=== PATIENT | female | born 1970 | race Caucasian/White ===

== ENCOUNTER 2021-10-29 18:22 | Inpatient (IN) | payer MEDICAID, OTHER ==
[~2021-10-29] VITALS: Ht 160 cm; Wt 105.5 kg
[2021-10-29 20:33] LABS: Hematocrit 44.2 % (36.0-46.0); Hemoglobin 15.1 g/dL (12.2-16.2); Mean Corpuscular Hemoglobin 30.9 pg (28.0-32.0); Mean Corpuscular Hgb Conc. 34.1 g/dL (32.0-36.0); Mean Corpuscular Volume 90.6 fL (80.0-100.0); Red Blood Cells 4.88 10^6/uL (4.0-5.20); Red Cell Distribution Width 14.6 % (11.8-14.3); White Blood Cell 9.2 10^3/uL (4.4-10.8)
[2021-10-29 20:38] LABS: Band Neutrophils % (manual) 0; Basophils % (manual) 0 (0.0-2.0); Blast Cells 0; Eosinophils % (manual) 0 (0-7); Metamyelocytes % 0; Myelocytes % 0; Promyelocytes % 0; Reactive Lymphocytes 0
[2021-10-29 20:58] LABS: Albumin 4.1 g/dL (3.4-5.0); Calcium 9.3 mg/dL (8.5-10.1); Potassium 4.1 mmol/L (3.5-5.1)
[2021-10-29 21:03] LABS: BUN/Creatinine Ratio 16.2; Bilirubin, Total 0.8 mg/dL (0.2-1.0); Total Protein 8.2 g/dL (6.4-8.2)
[2021-10-29 23:04] LABS: Lymphocytes % (manual) 12 (10.0-50.0); Monocytes % (manual) 5 (0-12)
[2021-10-30 01:44] LABS: Urine Amorphous Crystal FEW /hpf (None Seen); Urine Bacteria NONE SEEN /hpf (None Seen); Urine Blood Negative /uL (Negative); Urine Mucus FEW (None Seen); Urine Specific Gravity 1.021 (1.001-1.035); Urine WBC 3 /hpf (0 - 5)
[2021-10-30] MEDS ORDERED: cefTRIAXone 1GM/50ML D5W 50 ML IV ONE (03:00)
[2021-10-30] MEDS ORDERED: metroNIDAZOLE 500MG/100ML 100 ML IV ONE (03:00)
[2021-10-30] MEDS ORDERED: ONDANSETRON HCL 4 MG/2 ML VIAL IV ONE (03:45)
[2021-10-30] MEDS ORDERED: MORPHINE SULFATE 4 MG/ML SYR/VIAL IV ONE (03:45)
[2021-10-30] MEDS ORDERED: LABETALOL HCL 5 MG/ML 4ML SYRINGE IV ONE (04:30)
[2021-10-30] MEDS ORDERED: TEMAZEPAM 15 MG CAP PO PRN (05:30)
[2021-10-30] MEDS ORDERED: cloNIDine HCL 0.1 MG TAB PO PRN (05:30)
[2021-10-30] MEDS: metroNIDAZOLE 500MG/100ML 100 ML IV SCH ×3 (06:00→22:16)
[2021-10-30] MEDS ORDERED: OMEP20TA PO (08:46)
[2021-10-30] MEDS ORDERED: IBUP600T27 PO (08:46)
[2021-10-30] MEDS ORDERED: cefTRIAXone 1GM/50ML D5W 50 ML IV SCH (09:00)
[2021-10-30] MEDS: ONDANSETRON HCL 4 MG/2 ML VIAL IV PRN ×2 (09:30→16:31)
[2021-10-30] MEDS: HYDROcodone-ACET 5/325MG TAB PO PRN (09:32)
[2021-10-30] MEDS ORDERED: PANTOPRAZOLE 40 MG/10 ML VIAL INJ IV SCH (10:00)
[2021-10-30] MEDS ORDERED: LISINOPRIL 10 MG TAB PO SCH (10:00)
[2021-10-30] MEDS ORDERED: SUCRALFATE 1 GM TAB PO ONE (12:15)
[2021-10-30] MEDS ORDERED: METOPROLOL TARTRATE 25 MG TAB PO ONE (12:15)
[2021-10-30] MEDS ORDERED: hydrALAZINE HCL 20 MG/ML VL IV PRN (12:15)
[2021-10-30] MEDS ORDERED: NICOTINE 14 MG/24HR TOPICAL PATCH TD ONE (12:15)
[2021-10-30 12:41] LABS: Amphetamine Screen, Urine NEGATIVE (NEGATIVE); Barbiturate Scree,Urine NEGATIVE (NEGATIVE); Benzodiazephine Screen, Urine NEGATIVE (NEGATIVE); Cannabinoid Screen, Urine POSITIVE (NEGATIVE); Cocaine Screen, Urine NEGATIVE (NEGATIVE); Opiate Scree,Urine NEGATIVE (NEGATIVE)
[2021-10-30 12:48] LABS: Phencyclidine Screen, Urine NEGATIVE (NEGATIVE)
[2021-10-30 13:00] VITALS: BP 117/84
[2021-10-30] MEDS ORDERED: GOLYTELY 4L KIT PO ONE (13:15)
[2021-10-30] MEDS: MORPHINE SULFATE 4 MG/ML SYR/VIAL IV PRN (16:32)
[2021-10-30 17:03] VITALS: BP 120/63
[2021-10-30] MEDS: SUCRALFATE 1 GM TAB PO SCH ×2 (18:41→22:16)
[2021-10-30 20:00] VITALS: BP 99/62
[2021-10-30 22:00] VITALS: BP 94/56
[2021-10-30] MEDS: METOPROLOL TARTRATE 25 MG TAB PO SCH (22:00)
[2021-10-31 05:00] VITALS: BP 96/58
[2021-10-31] MEDS: metroNIDAZOLE 500MG/100ML 100 ML IV SCH (06:02)
[2021-10-31 06:44] LABS: Basophils # (auto) 0 10 ^3/uL (0-0.2); Basophils % (auto) 0.7 % (0.0-2.0); Eosinophils # (auto) 0.1 10 ^3/uL (0-0.8); Eosinophils % (auto) 1.1 % (0.0-7.0); Hematocrit 39.3 % (36.0-46.0); Hemoglobin 13.4 g/dL (12.2-16.2); Lymphocytes % (auto) 26.6 % (10.0-50.0); Mean Corpuscular Hemoglobin 31.3 pg (28.0-32.0); Mean Corpuscular Hgb Conc. 34.2 g/dL (32.0-36.0); Mean Corpuscular Volume 91.6 fL (80.0-100.0); Monocytes # (auto) 0.6 10 ^3/uL (0-1.3); Monocytes % (auto) 7.3 % (0.0-12.0); Neutrophils # (auto) 4.9 10 ^3/uL (1.6-8.6); Neutrophils % (auto) 64.3 % (37.0-80.0); Red Blood Cells 4.29 10^6/uL (4.0-5.20); Red Cell Distribution Width 14.4 % (11.8-14.3); White Blood Cell 7.6 10^3/uL (4.4-10.8)
[2021-10-31 06:46] LABS: Magnesium 2.3 mg/dL (1.6-2.6); Potassium 3.6 mmol/L (3.5-5.1)
[2021-10-31 06:53] LABS: Albumin 3.4 g/dL (3.4-5.0); BUN/Creatinine Ratio 24.4; Bilirubin, Total 0.7 mg/dL (0.2-1.0); Calcium 8.6 mg/dL (8.5-10.1); Total Protein 7.1 g/dL (6.4-8.2)
[2021-10-31 06:59] LABS: INR 1.06 (0.9-1.15)
[2021-10-31] MEDS: SUCRALFATE 1 GM TAB PO SCH ×4 (07:00→21:08)
[2021-10-31] MEDS ORDERED: LIDOCAINE VISCOUS 2% 15ML UD ONE (08:58)
[2021-10-31] MEDS ORDERED: diphenhdrAMINE HCL 50 MG/1 ML VL ONE (08:59)
[2021-10-31 09:00] VITALS: BP 121/74
[2021-10-31] MEDS: fentaNYL CITRATE 100 MCG/2 ML VL ONE ×2 (09:38→09:41)
[2021-10-31] MEDS: MIDAZOLAM HCL 5 MG/ML-1ML VIAL ONE ×2 (09:38→09:41)
[2021-10-31] MEDS ORDERED: MIDAZOLAM HCL 5 MG/ML-1ML VIAL ONE (09:44)
[2021-10-31] MEDS ORDERED: fentaNYL CITRATE 100 MCG/2 ML VL ONE (09:44)
[2021-10-31] MEDS ORDERED: SODIUM CHLORIDE LOCK 10 ML ONE (09:44)
[2021-10-31] MEDS: LISINOPRIL 10 MG TAB PO SCH (10:00)
[2021-10-31] MEDS: NICOTINE 14 MG/24HR TOPICAL PATCH TD SCH (10:00)
[2021-10-31] MEDS: METOPROLOL TARTRATE 25 MG TAB PO SCH ×2 (10:00→21:09)
[2021-10-31] MEDS: ONDANSETRON HCL 4 MG/2 ML VIAL IV PRN (10:29)
[2021-10-31] MEDS ORDERED: MORPHINE SULFATE INJECTION 2 MG/ML SYRG ONE (10:52)
[2021-10-31] MEDS: MORPHINE SULFATE 4 MG/ML SYR/VIAL IV PRN ×2 (10:53→10:55)
[2021-10-31] MEDS ORDERED: ePHEDrine SULFATE 50 MG/ML AMP ONE (11:09)
[2021-10-31] MEDS ORDERED: ePHEDrine SULFATE 50 MG/ML AMP IM ONE (11:15)
[2021-10-31] MEDS ORDERED: HYDROmorphone HCL 2 MG/ML VL ONE (11:38)
[2021-10-31] MEDS ORDERED: HYDROmorphone HCL 2 MG/ML VL IV PRN (11:45)
[2021-10-31] MEDS ORDERED: ONDANSETRON HCL 4 MG/2 ML VIAL IV PRN (11:45)
[2021-10-31 13:00] VITALS: BP 108/69
[2021-10-31 17:00] VITALS: BP 118/85
[2021-10-31] MEDS: PANTOPRAZOLE 40 MG TAB PO SCH (21:09)
[2021-10-31 22:00] VITALS: BP 120/73
[2021-11-01] MEDS: HYDROcodone-ACET 5/325MG TAB PO PRN ×2 (01:13→09:17)
[2021-11-01 05:00] VITALS: BP 124/77
[2021-11-01 05:43] LABS: Basophils # (auto) 0.1 10 ^3/uL (0-0.2); Basophils % (auto) 0.8 % (0.0-2.0); Eosinophils # (auto) 0.1 10 ^3/uL (0-0.8); Eosinophils % (auto) 1.6 % (0.0-7.0); Hematocrit 39.4 % (36.0-46.0); Lymphocytes # (auto) 2.1 10 ^3/uL (0.4-5.4); Lymphocytes % (auto) 31.6 % (10.0-50.0); Mean Corpuscular Hemoglobin 30.6 pg (28.0-32.0); Mean Corpuscular Volume 92.9 fL (80.0-100.0); Monocytes # (auto) 0.7 10 ^3/uL (0-1.3); Monocytes % (auto) 10.9 % (0.0-12.0); Neutrophils # (auto) 3.7 10 ^3/uL (1.6-8.6); Neutrophils % (auto) 55.1 % (37.0-80.0); Nucleated Red Blood Cells % 0.1 %; Red Blood Cells 4.25 10^6/uL (4.0-5.20); Red Cell Distribution Width 14.4 % (11.8-14.3); White Blood Cell 6.7 10^3/uL (4.4-10.8)
[2021-11-01 06:06] LABS: Potassium 4.2 mmol/L (3.5-5.1)
[2021-11-01 06:12] LABS: Albumin 3.2 g/dL (3.4-5.0); BUN/Creatinine Ratio 24.1; Bilirubin, Total 0.7 mg/dL (0.2-1.0); Calcium 8.4 mg/dL (8.5-10.1); Total Protein 6.5 g/dL (6.4-8.2)
[2021-11-01] MEDS: SUCRALFATE 1 GM TAB PO SCH ×2 (06:35→11:56)
[2021-11-01 09:00] VITALS: BP 119/81
[2021-11-01] MEDS: PANTOPRAZOLE 40 MG TAB PO SCH (09:16)
[2021-11-01] MEDS: METOPROLOL TARTRATE 25 MG TAB PO SCH (09:16)
[2021-11-01] MEDS: LISINOPRIL 10 MG TAB PO SCH (09:17)
[2021-11-01] MEDS: ONDANSETRON HCL 4 MG/2 ML VIAL IV PRN (09:22)
[2021-11-01] MEDS: NICOTINE 14 MG/24HR TOPICAL PATCH TD SCH (09:24)
[2021-11-01 13:01] VITALS: BP 119/89
[2021-11-01 14:10] VITALS: BP 119/89
[2021-11-03 11:45] LABS: Hepatitis B Surface Antibody Negative (Negative)
[2021-11-03 12:18] LABS: Hepatitis A Total Antibody Negative (Negative)
[2021-11-03] MEDS ORDERED: MET50T GT (12:31)
[2021-11-03] MEDS ORDERED: LISI20TA28 PO (12:31)
[2021-11-03] MEDS ORDERED: PANT40T PO (12:31)
[2021-11-03] MEDS ORDERED: SUCR1TAB22 OR (12:31)
[2021-11-03 14:04] LABS: Hepatitis C Antibody Negative (Negative)
== END 2021-11-01 13:00 | disposition home or self-care (01) | DRG 241 ==
LOC: EDBD 18:22 → ER 18:27 → OVERFLOW 10-30 05:28 → WEST WING 10-30 09:30
PROVIDERS: ADMIT Nurse Practitioner; ATTEND Internal Medicine
PROC: 0DB68ZX Excision of Stomach, Via Natural or Artificial Opening Endoscopic, Diagnostic (ICD-10-PCS; principal; 2021-10-31 09:36)
PROC: 0DBM8ZX Excision of Descending Colon, Via Natural or Artificial Opening Endoscopic, Diagnostic (ICD-10-PCS; 2021-10-31 09:36)
DX: K29.70 Gastritis, unspecified, without bleeding (principal); K70.9 Alcoholic liver disease, unspecified; E66.01 Morbid (severe) obesity due to excess calories; I10 Essential (primary) hypertension; K52.9 Noninfective gastroenteritis and colitis, unspecified; K57.30 Diverticulosis of large intestine without perforation or abscess without bleeding; Z68.41 Body mass index [BMI] 40.0-44.9, adult; K44.9 Diaphragmatic hernia without obstruction or gangrene; K63.5 Polyp of colon; F17.200 Nicotine dependence, unspecified, uncomplicated; R53.81 Other malaise; R74.01 Elevation of levels of liver transaminase levels; Z20.822 Contact with and (suspected) exposure to COVID-19; R53.83 Other fatigue; Z90.710 Acquired absence of both cervix and uterus; Z71.6 Tobacco abuse counseling
CPT/HCPCS: 36415; 74176; 76705; 80053; 80061; 80307; 81001; 81025; 82306; 83036; 83605; 83690; 83735; 84443; 85007; 85025; 85027; 85610; 86704; 86706; 86708; 86803; 87040; 87045; 87340; 87426; 87427; 87493; 96365; 96375; C9113; G0378; J0696; J2250; J2405; J3490

== ENCOUNTER 2021-12-03 17:27 | Inpatient (IN) | payer MEDICAID, OTHER ==
[~2021-12-03] VITALS: Ht 170.2 cm; Wt 101.9 kg
[~2021-12-03 17:27] MED LIST: IBUP600T27 PO; LISI20TA28 PO; MET50T GT; OMEP20TA PO; PANT40T PO; SUCR1TAB22 OR
[2021-12-03] MEDS ORDERED: PANTOPRAZOLE 40 MG/10 ML VIAL INJ IV ONE (17:45)
[2021-12-03] MEDS ORDERED: SODIUM CHLORIDE 0.9% 1,000 ML IVB ONE (17:45)
[2021-12-03] MEDS ORDERED: PROCHLORPERAZINE EDISYLATE 5 MG/ML 2ML VIAL IV ONE (17:45)
[2021-12-03] MEDS ORDERED: MORPHINE SULFATE 4 MG/ML SYR/VIAL IV ONE (17:45)
[2021-12-03 20:35] LABS: Basophils # (auto) 0 10 ^3/uL (0-0.2); Basophils % (auto) 0.6 % (0.0-2.0); Eosinophils # (auto) 0.2 10 ^3/uL (0-0.8); Eosinophils % (auto) 2.8 % (0.0-7.0); Hematocrit 39.9 % (36.0-46.0); Hemoglobin 13.1 g/dL (12.2-16.2); Lymphocytes # (auto) 3.1 10 ^3/uL (0.4-5.4); Lymphocytes % (auto) 40.5 % (10.0-50.0); Mean Corpuscular Hemoglobin 30.2 pg (28.0-32.0); Mean Corpuscular Hgb Conc. 32.9 g/dL (32.0-36.0); Mean Corpuscular Volume 91.8 fL (80.0-100.0); Monocytes # (auto) 0.6 10 ^3/uL (0-1.3); Monocytes % (auto) 7.8 % (0.0-12.0); Neutrophils # (auto) 3.6 10 ^3/uL (1.6-8.6); Neutrophils % (auto) 48.3 % (37.0-80.0); Nucleated Red Blood Cells % 0.1 %; Red Blood Cells 4.35 10^6/uL (4.0-5.20); Red Cell Distribution Width 14.7 % (11.8-14.3); White Blood Cell 7.5 10^3/uL (4.4-10.8)
[2021-12-03 20:36] LABS: Albumin 3.7 g/dL (3.4-5.0); Calcium 8.5 mg/dL (8.5-10.1); Potassium 3.4 mmol/L (3.5-5.1)
[2021-12-03 20:38] LABS: BUN/Creatinine Ratio 16.9; Bilirubin, Total 0.4 mg/dL (0.2-1.0); Total Protein 7.6 g/dL (6.4-8.2)
[2021-12-04] MEDS ORDERED: ACETAMINOPHEN 325 MG TAB PO PRN (05:00)
[2021-12-04] MEDS ORDERED: TEMAZEPAM 15 MG CAP PO PRN (05:00)
[2021-12-04] MEDS ORDERED: ONDANSETRON HCL 4 MG/2 ML VIAL IV PRN (05:00)
[2021-12-04] MEDS: D5W/SOD CHLO 0.9% 1,000 ML IV SCH ×2 (05:25→18:09)
[2021-12-04 08:46] VITALS: BP 137/84
[2021-12-04] MEDS: LISINOPRIL 20 MG TAB PO SCH (10:00)
[2021-12-04] MEDS: METOPROLOL TARTRATE 50 MG TAB PO SCH ×2 (10:00→23:42)
[2021-12-04] MEDS ORDERED: PANTOPRAZOLE 40 MG/10 ML VIAL INJ IV SCH (10:00)
[2021-12-04] MEDS: HYDROcodone-ACET 5/325MG TAB PO PRN ×2 (10:15→19:12)
[2021-12-04 12:00] VITALS: BP 118/71
[2021-12-04 17:00] VITALS: BP 156/92
[2021-12-04] MEDS: SUCRALFATE 1 GM/10 ML ORAL SUSP PO SCH ×2 (18:09→23:42)
[2021-12-04 20:00] VITALS: BP 107/74
[2021-12-04 22:00] VITALS: BP 107/74
[2021-12-04 22:32] VITALS: BP 107/74
[2021-12-04] MEDS: PANTOPRAZOLE 40 MG TAB PO SCH (23:42)
[2021-12-05] MEDS: HYDROcodone-ACET 5/325MG TAB PO PRN ×3 (05:49→23:23)
[2021-12-05 05:50] VITALS: BP 123/61
[2021-12-05 06:27] LABS: Basophils # (auto) 0 10 ^3/uL (0-0.2); Basophils % (auto) 0.6 % (0.0-2.0); Eosinophils # (auto) 0.2 10 ^3/uL (0-0.8); Eosinophils % (auto) 3.4 % (0.0-7.0); Hematocrit 36.7 % (36.0-46.0); Hemoglobin 12.2 g/dL (12.2-16.2); Lymphocytes % (auto) 40.1 % (10.0-50.0); Mean Corpuscular Hemoglobin 30.4 pg (28.0-32.0); Mean Corpuscular Hgb Conc. 33.3 g/dL (32.0-36.0); Mean Corpuscular Volume 91.1 fL (80.0-100.0); Monocytes # (auto) 0.5 10 ^3/uL (0-1.3); Neutrophils # (auto) 2.2 10 ^3/uL (1.6-8.6); Neutrophils % (auto) 44.9 % (37.0-80.0); Nucleated Red Blood Cells % 0.1 %; Red Blood Cells 4.03 10^6/uL (4.0-5.20); Red Cell Distribution Width 14.2 % (11.8-14.3); White Blood Cell 4.9 10^3/uL (4.4-10.8)
[2021-12-05 06:47] LABS: Potassium 4.1 mmol/L (3.5-5.1)
[2021-12-05 06:54] LABS: Albumin 3.3 g/dL (3.4-5.0); Bilirubin, Total 1.1 mg/dL (0.2-1.0); Calcium 8.6 mg/dL (8.5-10.1); Total Protein 6.8 g/dL (6.4-8.2)
[2021-12-05] MEDS: SUCRALFATE 1 GM/10 ML ORAL SUSP PO SCH ×4 (07:40→23:22)
[2021-12-05] MEDS: D5W/SOD CHLO 0.9% 1,000 ML IV SCH (07:43)
[2021-12-05 09:00] VITALS: BP 168/114
[2021-12-05] MEDS: PANTOPRAZOLE 40 MG TAB PO SCH ×2 (10:00→23:23)
[2021-12-05] MEDS: LISINOPRIL 20 MG TAB PO SCH (10:00)
[2021-12-05] MEDS: METOPROLOL TARTRATE 50 MG TAB PO SCH ×2 (10:00→23:24)
[2021-12-05 13:00] VITALS: BP 123/92
[2021-12-05 17:00] VITALS: BP_SYST 146; BP_SYST 147; BP_DIAS 81; BP_DIAS 96
[2021-12-06 05:00] VITALS: BP 120/67
[2021-12-06] MEDS: SUCRALFATE 1 GM/10 ML ORAL SUSP PO SCH (07:37)
== END 2021-12-06 09:00 | disposition left against medical advice (07) | DRG 251 ==
LOC: EDBD 17:27 → ER 17:27 → OVERFLOW 12-04 04:48 → CENTRAL 12-04 08:07
PROVIDERS: ADMIT Nurse Practitioner; ATTEND Family Medicine
DX: R10.9 Unspecified abdominal pain (principal); E66.01 Morbid (severe) obesity due to excess calories; R11.2 Nausea with vomiting, unspecified; E78.5 Hyperlipidemia, unspecified; F12.90 Cannabis use, unspecified, uncomplicated; I10 Essential (primary) hypertension; F17.210 Nicotine dependence, cigarettes, uncomplicated; F19.10 Other psychoactive substance abuse, uncomplicated; K21.9 Gastro-esophageal reflux disease without esophagitis; Z53.29 Procedure and treatment not carried out because of patient's decision for other reasons; Z20.822 Contact with and (suspected) exposure to COVID-19; Z83.3 Family history of diabetes mellitus; Z85.820 Personal history of malignant melanoma of skin; Z90.710 Acquired absence of both cervix and uterus; Z68.36 Body mass index [BMI] 36.0-36.9, adult; Z71.6 Tobacco abuse counseling
CPT/HCPCS: 36415; 76705; 78226; 80053; 82150; 83690; 85025; 87426; 93005; 96361; 96374; 96375; C9113; G0378; J7042